=== PATIENT | female | born 1990 | race Caucasian/White ===

== ENCOUNTER 2017-03-09 00:25 | Emergency (ER) | payer BC, OTHER ==
[2017-03-09] MEDS ORDERED: Morphine INJ* 4 MG/ML 1 ML SYRINGE IV ONE (01:26)
[2017-03-09] MEDS ORDERED: Ondansetron INJ* 2 MG/ML VIAL IV ONE (01:26)
[2017-03-09] MEDS ORDERED: NS 0.9% 1000 ML* 1,000 ML IV ONE (01:26)
[2017-03-09 02:19] LABS: Hematocrit 39 % (35-47); Hemoglobin 12.8 g/dl (12.0-16.0); Mean Corpuscular HGB Conc 33 g/dl (31-36); Mean Corpuscular Hemoglobin 29 pg (27-31); Mean Corpuscular Volume 88 fL (80-97); Mean Platelet Volume 9 um3 (7.4-10.4); Red Blood Count 4.47 10^6/ul (4.0-5.4); Red Cell Distribution Width 16 % (10.5-15); White Blood Count 11.6 10^3/ul (3.5-10.8)
[2017-03-09 02:24] LABS: Add Diff/Slide Review? Slide Review Added; Comments Flag Yes
[2017-03-09 02:35] LABS: ALT 11 U/L (7-52); AST 18 U/L (13-39); Albumin 4.2 g/dL (3.2-5.2); Alkaline Phosphatase 43 U/L (34-104); Amylase 61 U/L (29-103); Anion Gap 10 mmol/L (2-11); BUN/Creatinine Ratio 9.6 (8-20); Blood Urea Nitrogen 9 mg/dL (6-24); C Reactive Protein 5.85 mg/L (< 5.00); CO2 Carbon Dioxide 20 mmol/L (22-32); Calcium 9.8 mg/dL (8.6-10.3); Chloride 106 mmol/L (101-111); EGFR African American 90.5 (>60); EGFR Non-African American 70.4 (>60); Globulin 3.7 g/dL (2-4); Glucose 127 mg/dL (70-100); Lipase 23 U/L (11.0-82.0); Magnesium 2.1 mg/dL (1.9-2.7); Potassium 3.5 mmol/L (3.5-5.0); Sodium 136 mmol/L (133-145); Total Protein 7.9 g/dL (6.4-8.9)
[2017-03-09] MEDS ORDERED: Iohexol 300* (CONTRAST) 10 ML SDV IV ONE (03:22)
[2017-03-09 03:40] LABS: Urine Bilirubin Negative (Negative); Urine Glucose Negative (Negative); Urine Nitrite Negative (Negative)
--- NOTE | 2017-03-09 08:04 | RAD ---
CLINICAL HISTORY: Right upper quadrant abdominal pain COMPARISON: None TECHNIQUE: Multiple contiguous axial CT scans were obtained of the abdomen and pelvis after the administration of intravenous contrast. Coronal and sagittal multiplanar reformations are submitted for review. Oral contrast was administered. Delayed images were obtained through the abdomen and pelvis. FINDINGS: LUNG BASES: The lung bases are clear. LIVER: The liver is normal in shape, size, contour, and attenuation. BILE DUCTS: There is no intrahepatic or extrahepatic biliary dilatation. GALLBLADDER: The gallbladder is normal, without pericholecystic inflammatory change. PANCREAS: The pancreas is normal, without mass or ductal dilatation. SPLEEN: Normal in size and appearance. UPPER GI TRACT: Evaluation of the gastrointestinal tract is limited by incomplete gastric distention. The upper GI tract is unremarkable. SMALL BOWEL AND MESENTERY: The small bowel is normal in contour, course, and caliber. There is no obstruction or dilatation. There is fecalization of small bowel contents. The question of mesenteric volvulus noted on the pulmonary report is not clearly appreciated on the submitted images. COLON: The colon is normal in contour, course, caliber. There is no pericolonic inflammatory change. There is a large amount stool throughout the colon. The appendix is not clearly visualized. The questionable large bowel obstruction noted in the preliminary report is not clearly appreciated on the submitted images. ADRENALS: Normal bilaterally. KIDNEYS: The kidneys are normal in shape, size, contour, and axis. There is no hydronephrosis or nephrolithiasis. BLADDER: The bladder is smooth in contour. PELVIC ORGANS: The uterus and adnexa are grossly normal for technique. AORTA: The aorta is normal. IVC: Unremarkable LYMPH NODES: There is no lymphadenopathy by size criteria. ABDOMINAL WALL: There is no evidence for abdominal wall hernia. BONES AND SOFT TISSUES: Unremarkable OTHER: None IMPRESSION: 1. LARGE AMOUNT OF STOOL THROUGHOUT THE COLON. 2. THERE IS FECALIZATION OF SMALL BOWEL CONTENTS SUGGESTIVE OF DELAYED TRANSIT. 3. THERE ARE NO IMAGING FEATURES TO SUGGEST SMALL BOWEL OR LARGE BOWEL OBSTRUCTION
--- NOTE | 2017-03-09 08:22 | ED ---
Clayton Hatfield Rebecca, scribed for Kathy Soto MD on 03/09/17 at 0152 . Abdominal Pain/Female - HPI Summary HPI Summary: Pt is a 27 y/o F who presents to ED c/o abd pain. Pain began yesterday (03/08/2017 ) at 1800 and has been constant since onset. Pain is discrete to the RUQ without radiation and is currently moderate, ranked 5/10. Sx aggravated and alleviated by nothing. Additionally c/o back pain. No fever, no vomiting, no diarrhea. - History of Current Complaint Chief Complaint: EDAbdPain Stated Complaint: ABD PAIN Time Seen by Provider: 03/09/17 01:26 Hx Obtained From: Patient Onset/Duration: Lasting Days - 2 days ago, Still Present Timing: Constant Severity Currently: Moderate Pain Intensity: 5 Pain Scale Used: 0-10 Numeric Location: Discrete At: RUQ Radiates: No Character: Sharp Aggravating Factor(s): Nothing Alleviating Factor(s): Nothing Associated Signs and Symptoms: Positive: Negative Allergies/Adverse Reactions: Allergies Allergy/AdvReac Type Severity Reaction Status Date / Time No Known Allergies Allergy Verified 03/09/17 00:29 PMH/Surg Hx/FS Hx/Imm Hx Previously Healthy: Yes Endocrine/Hematology History: Denies: Hx Diabetes Cardiovascular History: Denies: Hx Coronary Artery Disease Infectious Disease History: No Infectious Disease History: Denies: Traveled Outside the [place] in Last 30 Days - Family History Known Family History: Negative: Cardiac Disease - Social History Lives: With Family Alcohol Use: Occasionally Substance Use Type: Reports: None Smoking Status (MU): Never Smoked Tobacco Review of Systems Constitutional: Negative Cardiovascular: Negative Respiratory: Negative Positive: Abdominal Pain - RUQ Genitourinary: Negative Positive: Arthralgia - Back pain Skin: Negative Neurological: Negative Positive: Anxious - about needlestick and IV remaining in place All Other Systems Reviewed And Are Negative: Yes Physical Exam Triage Information Reviewed: Yes Vital Signs On Initial Exam: Initial Vitals Temp Pulse Resp BP Pulse Ox 98.2 F 115 20 121/82 100 03/09/17 00:28 03/09/17 00:28 03/09/17 00:28 03/09/17 00:28 03/09/17 00:28 Vital Signs Reviewed: Yes Appearance: Positive: Well-Nourished, Pain Distress Skin: Positive: Warm, Skin Color Reflects Adequate Perfusion Head/Face: Positive: Normal Head/Face Inspection Eyes: Positive: Conjunctiva Clear ENT: Positive: Normal ENT inspection Neck: Positive: Supple Respiratory/Lung Sounds: Positive: Clear to Auscultation, Breath Sounds Present , Other - No respiratory distress Cardiovascular: Positive: RRR, Pulses are Symmetrical in both Upper and Lower Extremities, Other - Brisk capillary refill Abdomen Description: Positive: Soft, Other: - McBurney's point tenderness Musculoskeletal: Positive: Strength/ROM Intact Neurological: Positive: Sensory/Motor Intact, Alert, Oriented to Person Place, Time Psychiatric: Positive: Other - Pain out of proportion - [place] Coma Scale Coma Scale Total: 15 Diagnostics - Vital Signs Vital Signs Temp Pulse Resp BP Pulse Ox 03/09/17 01:00 117 110/85 99 03/09/17 00:58 98.4 F 115 16 110/85 99 03/09/17 00:47 91 100 03/09/17 00:46 115/89 03/09/17 00:28 98.2 F 115 20 121/82 100 - Laboratory Lab Results: Lab Results 03/09/17 03/09/17 03/09/17 Range/Units 02:05 02:05 02:05 WBC 11.6 H (3.5-10.8) 10^3/ul RBC 4.47 (4.0-5.4) 10^6/ul Hgb 12.8 (12.0-16.0) g/dl Hct 39 (35-47) % MCV 88 (80-97) fL MCH 29 (27-31) pg MCHC 33 (31-36) g/dl RDW 16 H (10.5-15) % Plt Count 213 (150-450) 10^3/ul MPV 9 (7.4-10.4) um3 Neut % (Auto) 80.3 (38-83) % Lymph % (Auto) 11.7 L (25-47) % [place] % (Auto) 5.6 (1-9) % Eos % (Auto) 0.5 (0-6) % Baso % (Auto) 1.9 (0-2) % Absolute Neuts (auto) 9.3 H (1.5-7.7) 10^3/ul Absolute Lymphs (auto) 1.4 (1.0-4.8) 10^3/ul Absolute Monos (auto) 0.7 (0-0.8) 10^3/ul Absolute Eos (auto) 0.1 (0-0.6) 10^3/ul Absolute Basos (auto) 0.2 (0-0.2) 10^3/ul Absolute Nucleated RBC 0.01 10^3/ul Nucleated RBC % 0.1 INR (Anticoag Therapy) (0.89-1.11) APTT (26.0-36.3) seconds Sodium 136 (133-145) mmol/L Potassium 3.5 (3.5-5.0) mmol/L Chloride 106 (101-111) mmol/L Carbon Dioxide 20 L (22-32) mmol/L Anion Gap 10 (2-11) mmol/L BUN 9 (6-24) mg/dL Creatinine 0.94 (0.51-0.95) mg/dL Est GFR ( Amer) 90.5 (>60) Est GFR (Non-Af Amer) 70.4 (>60) BUN/Creatinine Ratio 9.6 (8-20) Glucose 127 H (70-100) mg/dL Lactic Acid 4.0 H* (0.5-2.0) mmol/L Calcium 9.8 (8.6-10.3) mg/dL Magnesium 2.1 (1.9-2.7) mg/dL Total Bilirubin 1.00 (0.2-1.0) mg/dL AST 18 (13-39) U/L ALT 11 (7-52) U/L Alkaline Phosphatase 43 (34-104) U/L C-Reactive Protein 5.85 H (< 5.00) mg/L Total Protein 7.9 (6.4-8.9) g/dL Albumin 4.2 (3.2-5.2) g/dL Globulin 3.7 (2-4) g/dL Albumin/Globulin Ratio 1.1 (1-3) Amylase 61 (29-103) U/L Lipase 23 (11.0-82.0) U/L Beta HCG, Quant < 0.60 mIU/mL Urine Color Urine Appearance Urine pH (5-9) Ur Specific [place] (1.010-1.030) Urine Protein (Negative) Urine Ketones (Negative) Urine Blood (Negative) Urine Nitrate (Negative) Urine Bilirubin (Negative) Urine Urobilinogen (Negative) Ur Leukocyte Esterase (Negative) Urine Glucose (Negative) 03/09/17 03/09/17 Range/Units 02:05 03:30 WBC (3.5-10.8) 10^3/ul RBC (4.0-5.4) 10^6/ul Hgb (12.0-16.0) g/dl Hct (35-47) % MCV (80-97) fL MCH (27-31) pg MCHC (31-36) g/dl RDW (10.5-15) % Plt Count (150-450) 10^3/ul MPV (7.4-10.4) um3 Neut % (Auto) (38-83) % Lymph % (Auto) (25-47) % [place] % (Auto) (1-9) % Eos % (Auto) (0-6) % Baso % (Auto) (0-2) % Absolute Neuts (auto) (1.5-7.7) 10^3/ul Absolute Lymphs (auto) (1.0-4.8) 10^3/ul Absolute Monos (auto) (0-0.8) 10^3/ul Absolute Eos (auto) (0-0.6) 10^3/ul Absolute Basos (auto) (0-0.2) 10^3/ul Absolute Nucleated RBC 10^3/ul Nucleated RBC % INR (Anticoag Therapy) 0.86 L (0.89-1.11) APTT 26.4 (26.0-36.3) seconds Sodium (133-145) mmol/L Potassium (3.5-5.0) mmol/L Chloride (101-111) mmol/L Carbon Dioxide (22-32) mmol/L Anion Gap (2-11) mmol/L BUN (6-24) mg/dL Creatinine (0.51-0.95) mg/dL Est GFR ( Amer) (>60) Est GFR (Non-Af Amer) (>60) BUN/Creatinine Ratio (8-20) Glucose (70-100) mg/dL Lactic Acid (0.5-2.0) mmol/L Calcium (8.6-10.3) mg/dL Magnesium (1.9-2.7) mg/dL Total Bilirubin (0.2-1.0) mg/dL AST (13-39) U/L ALT (7-52) U/L Alkaline Phosphatase (34-104) U/L C-Reactive Protein (< 5.00) mg/L Total Protein (6.4-8.9) g/dL Albumin (3.2-5.2) g/dL Globulin (2-4) g/dL Albumin/Globulin Ratio (1-3) Amylase (29-103) U/L Lipase (11.0-82.0) U/L Beta HCG, Quant mIU/mL Urine Color Colorless Urine Appearance Clear Urine pH 8.0 (5-9) Ur Specific [place] 1.001 L (1.010-1.030) Urine Protein Negative (Negative) Urine Ketones Negative (Negative) Urine Blood Negative (Negative) Urine Nitrate Negative (Negative) Urine Bilirubin Negative (Negative) Urine Urobilinogen Negative (Negative) Ur Leukocyte Esterase Negative (Negative) Urine Glucose Negative (Negative) Result Diagrams: 03/09/17 02:05 03/09/17 02:05 Lab Statement: Any lab studies that have been ordered have been reviewed, and results considered in the medical decision making process. - CT CT Abd/Pel W/ Contrast CT Interpretation: Positive (See Comments) - Questionable large bowel obstruction in the transverse colon with associated twisting of adjacent mesenteric vessels, although would be highly unusual location for a volvulus. Suggest delayed imaging to allow oral contrast to traverse the colon. CT Interpretation Completed By: Radiologist - EKG 0310 Cardiac Rate: Tachycardia - 103 bpm EKG Rhythm: Sinus Tachycardia EKG Interpretation: nl AV/IV CT, nl QTC, nl axis, no acute changes Re-Evaluation - Re-Evaluation First Eval Re-Evaluation Time: 01:46 Change: Unchanged Comment: Counseled the pt and explained why she needs an IV in order to receive contrast for the CT. Helped calm the patient during IV insertion. Additionally counseled the pt on how to address her fears. Second Eval Re-Evaluation Time: 04:45 Change: Improved Comment: Updated pt on the plan to have delayed imaging done. Third Eval Re-Evaluation Time: 07:55 Change: Unchanged Comment: advised pt that Dr. Tamanna will re-read CT and determine whether delayed imaging is needed. Pt indicates pain just to the right and above the umbilicus, rates it a "2". No vomiting. Abdominal Pain Fem Course/Dx - Course Course Of Treatment: Pt is a 27 y/o F who presents to ED c/o moderate RUQ pain since 1800 yesterday. Sx aggravated and alleviated by nothing. Additionally c/o back pain. EKG reveals sinus tachy. CT Abd/Pel reveals: "Questionable large bowel obstruction in the transverse colon with associated twisting of adjacent mesenteric vessels, although would be highly unusual location for a volvulus. Suggest delayed imaging to allow oral contrast to traverse the colon." Discussed care of pt with Dr. Aaron who advises a repeat, delayed CT. Pt will be signed out to Dr. Sawyer, pending dispo, awaiting CT. [address] Nolen who does not advise repeat imaging, sees no evidence of small or large bowel obstruction. Care to Dr. Sawyer who will eval pt for discharge. - Diagnoses Provider Diagnoses: Abdominal pain - Provider Notifications Discussed Care Of Patient With: Cory Aaron Time Discussed With Above Provider: 04:14 Instructed by Provider To: Other - Discussed CT results and recommended delayed imaging. Discharge - Discharge Plan Condition: Stable Disposition: OTHER Discharge Disposition Comment: Pt will be signed out to Dr. Sawyer, pending dispo, awaiting repeat CT Referrals: No Primary Care Phys,NOPCP [Primary Care Provider] - The documentation as recorded by the Clayton mcneal Rebecca accurately reflects the service I personally performed and the decisions made by , Kathy Soto MD.
[2017-03-09 09:48] VITALS: BP 103/74
== END 2017-03-09 09:47 | disposition home or self-care (01) ==
LOC: ED 00:25
DX: R10.11 Right upper quadrant pain (principal); M54.9 Dorsalgia, unspecified; Z32.02 Encounter for pregnancy test, result negative
CPT/HCPCS: 36415; 74177; 80053; 81003; 82150; 83605; 83690; 83735; 84702; 85025; 85610; 85730; 86140; 93005; 96361; 96374; 96375; 99284; J2270; J2405; Q9967

== ENCOUNTER → 2018-06-11 12:07 | Emergency (ER) | payer BC ==
[~2018-06-11 12:07] MED LIST: Acetaminophen TAB* 325 MG PO ONE; Iohexol 300* (CONTRAST) 10 ML SDV IV ONE; Ketorolac INJ* 30 MG/ML 1 ML VIAL IV PUSH ONE; Lidocaine 2.5%/Prilocain 2.5%* 5 GM TUBE TOPICAL ONE; NS 0.9% 1000 ML* 1,000 ML IV ONE
--- OUTSIDE RECORDS SUMMARY | 2018-06-11 13:02 | XMS REPORT ---
:1990 External Reference #:[id number] Author Organization [facility] Address [address] [place] [address] Phone [phone] Care Team Providers Name Role Phone Bushra Mueller M.D. Care Team Information Bonding Machine Tender Unavailable Bushra Mueller M.D. Primary Care Physician Unavailable Payers Type Date Identification Numbers Payment Provider Subscriber Commercial Effective: Policy Number: [id number] BC/BS Of [place] 2017 PayID: [id number] [address] [address] [place] [address] Medigap Part B Effective: 2014 Policy Number: BC/BS Of [place] Osborn [id number] Expires: 2018 Group Name: Nell Levin [address] [address] PayID: [id number] [place] [address] Problems Description No Active Problems Family History Date Family Member(s) Problem(s) Comments Father No Current Problems Mother Hypertension First Brother No Current Problems Onset: (age 50 Years) Grandfather [place] Grandmother due to Cancer () Social History Type Date Description Comments Lives With Spouse Lives With Children Occupation [employer] union Cigarette Use Never Smoked Cigarettes ETOH Use Social Alcohol Smoking Patient has never smoked Allergies, Adverse Reactions, Alerts Date Description Reaction Status Severity Comments 10/20/2014 NKDA active Medications Medication Date Status Form Strength Qnty SIG Indications Ordering Provider Sulfamethoxazo Hx Tablets 800-160mg 10tabs 2 by N39.0 Lupis le/Trimethopri 018 - mouth x1 garland Pineda DS then 1 Afnp-C 018 by mouth twice a day x 4 more days Aviane Active Tablets 0.1-20mg-mc 28tabs 1 by Z30.8 Bushra 016 g mouth Counselor, every M.D. day No Active Hx Unknown Medications 015 - 016 Vital Signs Date Vital Result Comment 06/09/2018 BP Systolic 112 mmHg BP Diastolic 68 mmHg Heart Rate 76 /min Body Temperature 98.2 F Respiratory Rate 18 /min Height 65 inches 5'5" Weight 146.00 lb BMI (Body Mass Index) 24.3 kg/m2 01/23/2016 BP Systolic 110 mmHg BP Diastolic 68 mmHg Heart Rate 80 /min Body Temperature 98.2 F Respiratory Rate 16 /min Height 65 inches 5'5" Weight 138.00 lb BMI (Body Mass Index) 23.0 kg/m2 10/20/2014 BP Systolic 110 mmHg BP Diastolic 74 mmHg Heart Rate 80 /min Body Temperature 98.8 F Respiratory Rate 16 /min Height 65 inches 5'5" Weight 141.00 lb BMI (Body Mass Index) 23.5 kg/m2 Results Test Date Test Result H/L Range Note Laboratory test finding 03/10/2018 Cytology SEE RESULT BELOW 1 Complete Blood Count 10/28/2014 WBC 7.2 x10^3/UL 3.6-9.6 RBC 4.31 x10^6/UL 3.90-5.70 HGB 12.8 g/dL 12.1-17.2 HCT 38 % 36-50 MCV 88.0 fL 82.2-97.4 MCH 29.7 pg 27.6-33.3 MCHC 33.9 g/dL 33.0-35.5 RDW 13.3 % 11.6-13.7 PLT 270 x10^3/UL 150-400 MPV 8.0 fL 7.4-10.4 Gran # 4.9 x10^3/UL 1.5-7.2 Lymph# 2.1 x10^3/UL 0.7-4.9 [place]# 0.2 x10^3/UL 0.1-0.9 Gran % 67.0 % 42.2-75.2 Lymph % 29.2 % 20.5-51.1 [place]% 3.8 % 1.7-9.3 Comprehensive Metabolic Prof 10/28/2014 Sodium 140 mEq/L 134-149 Potassium 3.4 mEq/L Low 3.6-5.5 2 Chloride 104 mEq/L 94-112 Carbon Dioxide 28 mEq/L 21-32 Glucose 97 mg/dL 70-105 BUN 11 mg/dL 6-26 Creatinine 0.8 mg/dL 0.6-1.4 BUN/Creat Ratio 13.8 CALC 8.0-36.0 Calcium 8.7 mg/dL 8.6-10.2 Total Protein 7.7 g/dL 6.4-8.3 Albumin 4.2 g/dL 3.8-5.5 Globulin 3.5 g/dL 2.0-4.8 A/G Ratio 1.2 CALC 0.6-2.3 Alk. Phosphatase 50 U/L 30-110 Alt (SGPT) 28 U/L 7-35 Ast (Sgot) 23 U/L 5-34 Total Bilirubin 1.5 mg/dL High 0.2-1.3 3 Lipid Profile 10/28/2014 Cholesterol 156 mg/dL 120-200 Triglycerides 92 mg/dL 30-200 HDL Cholesterol 51 mg/dL 30-85 LDL (Calculated) 87 CALC 0-129 VLDL Cholesterol 18 mg/dL 0-50 HDL Risk Factor 3.1 CALC 0.0-4.4 Laboratory test finding 10/28/2014 TSH 3.99 mIU/L 0.50-6.00 4 1 SEE RESULT BELOW Name: KARIN OSBORN : [address]: Ethel Chapa Acct: [id number] Unit: [id number] AGE: 28 Location: [facility] Re03/10/18 SEX: F Status: REG REF SPEC: [id number] YAMILETH: 03/10/[address] [facility] [address]: Ethel Chapa REQ: [id number] RECD: 03/10/18 STATUS: KIKE GAMINO DR: Bushra Mueller MD _ ORDERED: TP IMAGE ANALYS, HPV/Thin Prep COMMENTS: [id number] Negative for Intraepithelial lesion or Malignancy A. Ectocervical/Endocervical Specimen Adequacy: Satisfactory of evaluation Transformation zone component identified Predominance of white blood cells Patient Information: HPV: High risk HPV RNA testing regardless of pap results. Actual Specimen Date: 03/10/18 Last Menstrual Date: 02/24/18 Date of Last Specimen: 09/18/16 Date Time Test Result Flag (u) Normal Range 03/10/18 0859 @ HPV RNA Negative Negative @ @ The high-risk HPV types detected by the assay include: 16, @ 18, 31, 33, 35, 39, 45, 51, 52, 56, 58, 59, 66, and 68. Signed by and Reported on: ELEAZAR Collins(ASCP) [id number] This Pap test was evaluated with the assistance of the WestWingPrep Test Imaging System. Due to cytologic findings at the make ready mechanic microscope, comprehensive manual rescreening by a Meal Grinder Tender may be required. The Pap Smear is a screening test designed to aid in the detection of premalignant and malignant conditions of the uterine cervix. It is not a diagnostic procedure and should not be used as the sole means of detecting cervical cancer. Both false- positive and false- negative reports do occur. Depending on your risk status, a Pap smear should be obtained and evaluated every 1-3 years. END OF REPORT DEPARTMENT OF PATHOLOGY, [address] [place] [address] Torres Ellison M.D. Director [facility] # [id number] 2 RESULTS VERIFIED BY REPEAT ANALYSIS 3 RESULTS VERIFIED BY REPEAT ANALYSIS 4 FASTING Procedures Description No Information Encounters Type Date Location Provider CPT E/M Dx Office Visit 01/23/2016 2:30p [facility] Lupis Pineda, [address] Z30.8 [facility] Office Visit 10/20/2014 1:30p [facility] Bushra Mueller M.D. 85297 V70.0 785.1 Plan of Care 06/09/2018 - [facility] Rangel-CN39.0 Urinary tract infection, site not specifiedNew Medication:Sulfamethoxazole/Trimethoprim DS 800-160 mgNew Labs:Ua - Micro (Fma)Urine Culture & SensitivityFollow up:Followup:. (Follow up) AllComments:~B_~U_Medication Management~b_~u_ Patient Understands medications she's taking? Yes No Are there Barriers to Adherence? Yes No Has the patient been asked about herbal supplements and therapies, and OTC meds? Yes No ~B_~U_Care Plan~b_~u_1. Patient has been queried about patient's goals/preferences and functional/lifestyle goals at relevant visits. If relevant, describe: na2. Treatment goals as explained to the patient: abovesx resolution 3. Are there barriers to meeting treatment goals? Yes No If Yes, please describe:4. Self-Management goals as described tothe patient: Yes No rx clinically push fluidscall if no better 3 days or if sx worsen
--- OUTSIDE RECORDS SUMMARY | 2018-06-11 13:02 | XMS REPORT ---
:1990 External Reference #:[id number] Author Organization [facility] Address [address] [place] [address] Phone [phone] Care Team Providers Name Role Phone Bushra Mueller M.D. Care Team Information Merchandise Examiner Unavailable Bushra Mueller M.D. Primary Care Physician Unavailable Payers Type Date Identification Numbers Payment Provider Subscriber Commercial Effective: Policy Number: [id number] BC/BS Of [place]ONNE Osborn 2017 PayID: [id number] [address] [address] [place] [address] Medigap Part B Effective: 2014 Policy Number: BC/BS Of IVONNE Osborn [id number] Expires: 2018 Group Name: Nell Levin [address] [address] PayID: [id number] [place] [address] Problems Description No Active Problems Family History Date Family Member(s) Problem(s) Comments Father No Current Problems Mother Hypertension First Brother No Current Problems Onset: (age 50 Years) Grandfather [place] Grandmother due to Cancer () Social History [...] 1 by Z30.8 Bushra 016 g mouth [place], every M.D. day No Active Hx Unknown Medications 015 - 016 Vital Signs Date Vital Result Comment 06/11/2018 BP Systolic 120 mmHg BP Diastolic 70 mmHg Heart Rate 108 /min Body Temperature 99.2 F Respiratory Rate 16 /min Height 65 inches 5'5" Weight 146.00 lb BMI (Body Mass Index) 24.3 kg/m2 06/09/2018 BP Systolic 112 mmHg BP Diastolic [...] Test Date Test Result H/L Range Note Urine Culture And 06/09/2018 Urine Culture SEE RESULT BELOW 1 Sensitivities Ua - Micro (Fma) 06/09/2018 Appearance cloudy Color yellow Glucose, Urine (Fma/CMC/CTX) neg Bilirubin n eg Ketones neg SP Grav 1.020 Blood moderate PH 7.0 Protein ssa 1+ Urobil - Nitrite neg Leukocytes (Fma/CMC/Centrex) moderate Hyaline - /Lpf Granular - /Lpf WBC (Fma,Centrex) 20-30 RBC 5-7 Mucus (Fma/CBC/Centrex) small amt /Lpf Epith occass /Lpf Bacteria 2+ /Hpf Amorphous (Fma/CMC/Centrex) - /Lpf Crystals, Fluid (Fma/CMC/CTX) - Z#Comments - Laboratory test finding 03/10/2018 Cytology SEE RESULT BELOW 2 Complete Blood Count 10/28/2014 WBC 7.2 x10^3/UL 3.6-9.6 RBC 4.31 x10^6/UL 3.90-5.70 HGB 12.8 g/dL 12.1-17.2 HCT 38 % 36-50 MCV 88.0 fL 82.2-97.4 MCH 29.7 pg 27.6-33.3 MCHC 33.9 g/dL 33.0-35.5 RDW 13.3 % 11.6-13.7 PLT 270 x10^3/UL 150-400 MPV 8.0 fL 7.4-10.4 Gran # 4.9 x10^3/UL 1.5-7.2 Lymph# 2.1 x10^3/UL 0.7-4.9 Butler# 0.2 x10^3/UL 0.1-0.9 Gran % 67.0 % 42.2-75.2 Lymph % 29.2 % 20.5-51.1 Butler% 3.8 % 1.7-9.3 Comprehensive Metabolic Prof 10/28/2014 Sodium 140 mEq/L 134-149 Potassium 3.4 mEq/L Low 3.6-5.5 3 Chloride 104 mEq/L 94-112 Carbon Dioxide 28 [...] 5-34 Total Bilirubin 1.5 mg/dL High 0.2-1.3 4 Lipid Profile 10/28/2014 Cholesterol 156 mg/dL 120-200 Triglycerides 92 mg/dL 30-200 HDL Cholesterol 51 mg/dL 30-85 LDL (Calculated) 87 CALC 0-129 VLDL Cholesterol 18 mg/dL 0-50 HDL Risk Factor 3.1 CALC 0.0-4.4 Laboratory test finding 10/28/2014 TSH 3.99 mIU/L 0.50-6.00 5 1 SEE RESULT BELOW Name: KARIN OSBORN : [address]: Lupis Pineda NP Acct: [id number] Unit: [id number] AGE: 28 Location: [facility] Re06/09/18 SEX: F Status: REG REF SPEC: [id number] YAMILETH: 06/09/[address]: Lupis Pineda NP REQ: [id number] RECD: 06/09/18 STATUS: COMP _ SOURCE: URINE SPDESC: ORDERED: Urine Culture COMMENTS: [id number] 1 neal top Urine Source: Random Procedure Result Reported Site Urine Culture Final 06/10/18- 1503 ML Organism 1 STAPHYLOCOCCUS SAPROPHYTICUS [place] Count >100,000 (Many) CFU/ML Routine sensitivity testing of urine isolates of S. saprophyticus is not advised, because infections respond to concentrations achieved in urine of antimicrobial agents commonly used to treat acute, uncomplicated urinary tract infections (e.g. nitrofurantoin, trimethoprim+/- sulfamethoxazole, or a fluoroquinolone). [facility] September 2001 * ML - Main Lab . END OF REPORT DEPARTMENT OF PATHOLOGY, [address] [place] [address] Torres Ellison M.D. Director [facility] # [id number] 2 SEE RESULT BELOW Name: KARIN OSBORN : [address]: Ehtel Chapa Acct: [id number] Unit: [id number] AGE: 28 Location: [facility] Re03/10/18 SEX: F Status: REG REF SPEC: [id number] YAMILETH: 03/10/18-[address] [facility] [address]: Ethel Chapa REQ: [id number] RECD: 03/10/18 STATUS: KIKE GAMINO DR: Bushra Mueller MD _ ORDERED: TP IMAGE ANALYS, HPV/Thin Prep COMMENTS: [id number] Negative for Intraepithelial lesion or Malignancy A. [...] Signed by and Reported on: ELEAZAR Collins(ASCP) [id number] This Pap test was evaluated with the assistance of the ThinPrep Test Imaging System. Due to cytologic findings at the ammunition storage superintendent microscope, comprehensive manual rescreening by a Harpoon Engagement Planning Operator may be required. The Pap Smear is [...] years. END OF REPORT DEPARTMENT OF PATHOLOGY, [address] [place] [address] Torres Ellison M.D. Director [facility] # [id number] 3 RESULTS VERIFIED BY REPEAT ANALYSIS 4 RESULTS VERIFIED BY REPEAT ANALYSIS 5 FASTING Procedures Description No Information Encounters Type Date Location Provider CPT E/M Dx Office Visit 06/09/2018 2:30p [facility] Office Lupis Pineda, 99150 N39.0 [facility] Office Visit 01/23/2016 2:30p [facility] Office Lupis Pineda, 52969 Z30.8 [facility] Office Visit 10/20/2014 1:30p [facility] Office Bushra Mueller M.D. 25779 V70.0 785.1 Plan of Care 06/11/2018 - Marli Elliott, FNPR10.31 Right lower quadrant painM79.651 Pain in right thighAllComments:~B_~U_Medication Management~b_~u_ Patient Understands medications he 's taking? Yes No Are there Barriers to Adherence? Yes No Has the patient been asked about herbal supplements and therapies, and OTC meds? Yes No As always, we strongly encourage a healthy diet and makingphysical activity a part of your every day life. If you have questions about how or where to start, please contact the office.
--- NOTE | 2018-06-11 13:18 | ED ---
Abdominal Pain/Female - HPI Summary HPI Summary: Pt. a 28-year-old female who presents emergency department for right groin pain times one day. Patient states she saw her PCP on Saturday, 2 days ago and was diagnosed with a UTI and placed on Bactrim. Patient states she was having symptoms of dysuria and frequency which are improving. Patient states the pain woke her up early this morning and has been constant since. Movement makes symptoms worse. Pt. also developed a fever today. Denies associated symptoms of vomiting, diarrhea, constipation, vaginal bleeding or discharge. Patient has no past medical history. Symptoms are moderate in severity. - History of Current Complaint Chief Complaint: EDExtremityLower Stated Complaint: PAIN IN LOWER RT EXTREMITY/HIGH HR Time Seen by Provider: 06/11/18 12:40 Hx Obtained From: Patient Pain Intensity: 5 Allergies/Adverse Reactions: Allergies Allergy/AdvReac Type Severity Reaction Status Date / Time No Known Allergies Allergy Verified 06/11/18 12:21 Home Medications: Home Medications Sulfamethox/Trimethoprim DS* [Bactrim DS 800/160 TAB*] 1 tab PO BID 06/11/18 [ History Confirmed 06/11/18] PMH/Surg Hx/FS Hx/Imm Hx Previously Healthy: Yes Endocrine/Hematology History: Denies: Hx Diabetes Cardiovascular History: Denies: Hx Coronary Artery Disease, Hx Hypertension History: Denies: Hx Renal Disease Infectious Disease History: No Infectious Disease History: Denies: Traveled Outside the [place] in Last 30 Days - Family History Known Family History: Negative: Cardiac Disease - Social History Occupation: Works From/At Home Lives: With Family Alcohol Use: Occasionally Substance Use Type: Reports: None Smoking Status (MU): Never Smoked Tobacco Review of Systems Positive: Fever, Chills Eyes: Negative ENT: Negative Cardiovascular: Negative Respiratory: Negative Positive: Abdominal Pain. Negative: Vomiting, Diarrhea, Nausea All Other Systems Reviewed And Are Negative: Yes Physical Exam Triage Information Reviewed: Yes Vital Signs On Initial Exam: Initial Vitals Temp Pulse Resp BP Pulse Ox 99.8 F 124 18 130/90 100 06/11/18 12:16 06/11/18 12:16 06/11/18 12:16 06/11/18 12:16 06/11/18 12:16 Appearance: Positive: Well-Nourished - Pt. sitting up in bed, appears anxious but nontoxic. Skin: Positive: Warm, Dry Head/Face: Positive: Normal Head/Face Inspection Eyes: Positive: Normal, EOMI Neck: Positive: Supple Respiratory/Lung Sounds: Positive: Clear to Auscultation, Breath Sounds Present Cardiovascular: Positive: Normal, RRR Abdomen Description: Positive: Other: - Marked tenderness to the right adnexal region. No pain over mcburney's. Soft without guarding.. Negative: CVA Tenderness (R), CVA Tenderness (L) Neurological: Positive: Normal, CN Intact II-III Psychiatric: Positive: Affect/Mood Appropriate Diagnostics - Vital Signs Vital Signs Temp Pulse Resp BP Pulse Ox 06/11/18 13:00 118 20 99 06/11/18 12:43 121 21 100 06/11/18 12:42 117 120/78 99 06/11/18 12:16 99.8 F 124 18 130/90 100 - Laboratory Result Diagrams: 06/11/18 14:05 06/11/18 14:05 Lab Statement: Any lab studies that have been ordered have been reviewed, and results considered in the medical decision making process. Abdominal Pain Fem Course/Dx - Course Course Of Treatment: Pt. presenting with acute onset right lower quadrant abdominal/adnexal pain. She does have a low-grade fever and is tachycardic. We 'll obtain labs, give IV fluids and pain medication. Pelvic ultrasound ordered to rule out torsion given acute onset. Labs show mild leukocytosis. Beta HCG is 8 which is indeterminate. Reexamination patient is still having right lower quadrant abdominal pain. We'll obtain CAT scan to rule out appendicitis. Discussed with patient indeterminate beta hCG and she agrees to follow up with CAT scan rule out appendicitis at this time. Pt. also may need pelvic if CT scan negative. Pt. will be signed out to Radha Barahona PA-C for CT results and appropriate disposition. - Diagnoses Provider Diagnoses: Abdominal pain Discharge - Sign-Out/Discharge Documenting (check all that apply): Sign-Out Patient Signing out patient TO: Marli Barahona - Discharge Plan Condition: Stable Referrals: Bushra Mueller MD [Primary Care Provider] - - Billing Disposition and Condition Condition: STABLE
--- NOTE | 2018-06-11 14:10 | RAD ---
HISTORY: right adnexal pain COMPARISONS: None relevant TECHNIQUE: Multiple transverse and longitudinal ultrasound images were obtained of the pelvis using grayscale, color Doppler, and spectral Doppler imaging using the transabdominal and endovaginal transducers. FINDINGS: UTERUS: The uterus measures 6.6 x 4.1 x 5.4 cm. The uterus is normal in shape, size, contour, and echotexture. ENDOMETRIUM: The endometrial stripe is smooth. The endometrium measures 0.7 cm in thickness. CUL-DE-SAC: There is no free fluid within the cul-de-sac. RIGHT OVARY: The right ovary measures 3 x 1.2 x 1.9 cm. Multiple follicles are noted. Normal arterial and venous waveforms are identifiable within the ovary on spectral Doppler imaging. LEFT OVARY: The left ovary measures 2.7 x 1.1 x 1.6 cm. Normal arterial and venous waveforms are identifiable within the ovary on spectral Doppler imaging. BLADDER: The bladder is not well visualized. OTHER: None IMPRESSION: NO ACUTE SONOGRAPHIC PATHOLOGY OF THE VISUALIZED PORTION OF THE PELVIS. NO SONOGRAPHIC FEATURES OF TORSION. PLEASE NOTE THAT PARTIAL OR INTERMITTENT TORSION MAY BE SONOGRAPHICALLY NORMAL.
[2018-06-11 14:21] LABS: ABS Basophils 0 10^3/ul (0-0.2); ABS Eosinophils 0 10^3/ul (0-0.6); ABS Lymphocytes 1.3 10^3/ul (1.0-4.8); ABS Monocytes 0.9 10^3/ul (0-0.8); ABS Neutrophils 9.2 10^3/ul (1.5-7.7); ABS Nucleated RBC 0 10^3/ul; Eosinophil % 0.4 % (0-6); Hematocrit 40 % (35-47); Hemoglobin 13.6 g/dl (12.0-16.0); Lymphocyte % 11.3 % (25-47); Mean Corpuscular HGB Conc 34 g/dl (31-36); Mean Corpuscular Hemoglobin 30 pg (27-31); Mean Corpuscular Volume 90 fL (80-97); Mean Platelet Volume 8.8 um3 (7.4-10.4); Nucleated Red Blood Cells % 0; Platelet Count 215 10^3/ul (150-450); Red Blood Count 4.47 10^6/ul (4.00-5.40); Red Cell Distribution Width 15 % (10.5-15); White Blood Count 11.4 10^3/ul (3.5-10.8)
[2018-06-11 14:23] LABS: Urine Appearance Clear; Urine Blood Negative (Negative); Urine Color Straw; Urine Ketones Negative (Negative); Urine Protein Negative (Negative); Urine Specific Gravity 1.004 (1.010-1.030); Urine Urobilinogen Negative (Negative)
[2018-06-11 14:40] LABS: EGFR Non-African American 65.9 (>60)
--- NOTE | 2018-06-11 18:21 | RAD ---
EXAM: CT Abdomen and Pelvis With Intravenous Contrast EXAM DATE/TIME: 06/11/2018 5:43 PM CLINICAL HISTORY: 28 years old, female; Pain; Abdominal pain; Additional info: Rlq pain TECHNIQUE: Axial computed tomography images of the abdomen and pelvis with intravenous contrast. All CT scans at this facility use at least one of these dose optimization techniques: automated exposure control; mA and/or kV adjustment per patient size (includes targeted exams where dose is matched to clinical indication); or iterative reconstruction. Coronal and sagittal reformatted images were created and reviewed. CONTRAST: 88 ml of OMNI 300 administered intravenously. COMPARISON: A/P W CT ABD/PEL W 03/09/2017 3:28 AM FINDINGS: Lower thorax: No acute findings. ABDOMEN: Liver: Normal. No mass. Gallbladder and bile ducts: Normal. No calcified stones. No ductal dilation. Pancreas: Normal. No ductal dilation. Spleen: Normal. No splenomegaly. Adrenals: Normal. No mass. Kidneys and ureters: Normal. No hydronephrosis. Stomach and bowel: Normal. No obstruction. No mucosal thickening. Appendix: No evidence of appendicitis. PELVIS: Bladder: The urinary bladder is decompressed but contains no calcified stones. Reproductive: Unremarkable as visualized. ABDOMEN and PELVIS: Intraperitoneal space: Normal. No free air. No significant fluid collection. Bones/joints: No acute fracture. No dislocation. Soft tissues: Unremarkable. Vasculature: Normal. No abdominal aortic aneurysm. Lymph nodes: Normal. No enlarged lymph nodes. IMPRESSION: No acute findings. No evidence of appendicitis. To contact [facility] with a general question: [facility] - [phone] For direct physician to physician contact: Physician Hotline - [phone] [facility] ([facility] Facility ID #[id number])
[2018-06-11 19:12] VITALS: BP 120/88
== END | disposition home or self-care (01) ==
LOC: ED 12:07
DX: R10.31 Right lower quadrant pain (principal); R50.9 Fever, unspecified; R00.0 Tachycardia, unspecified
CPT/HCPCS: 36415; 74177; 76830; 80053; 81003; 84702; 85025; 86140; 96374; 99284; A9270-GY; J1885; Q9967